=== PATIENT | female | born 1980 | race Caucasian/White ===

== ENCOUNTER 2024-02-24 03:48 | Observation (INO) | payer OTHER ==
[2024-02-24] VITALS (7 sets, daily range): BP systolic 129–164; BP diastolic 73–82; PULSE 60–68; TEMP 98.6–98.8
[~2024-02-24] VITALS: Ht 157.5 cm; Wt 75.0 kg
[~2024-02-24 03:48] MED LIST: LEVSIN0.125 M1 PO; NORCO 325 MG-51 TAB PO; ZOFRAN ODT4 MG PO
[2024-02-24] MEDS ORDERED: Pantoprazole 40 MG in NS 10 ML IV ONE (05:00)
[2024-02-24] MEDS ORDERED: NS 1,000 ML IV ONE (05:00)
[2024-02-24] MEDS ORDERED: LORazepam 2 MG/ML 1 ML VIAL IV ONE (05:00)
[2024-02-24] MEDS ORDERED: droPERidol 2.5 MG/ML 2 ML VIAL IV ONE (05:00)
[2024-02-24 05:05] LABS: BASO % 0.4 % (0.0-2.0); EOS % 0.1 % (0.0-4.0); GRAN # 6.2 K/mm3 (1.4-6.5); LYMPH # 0.9 K/mm3 (1.2-3.4); LYMPH % 12.3 % (20.0-51.0); MEAN CELL VOLUME 76 fl (80.0-100.0); MEAN CORPUSCULAR HGB CONC 28 g/dl (33.0-37.0); MEAN PLATELET VOLUME 10.3 fl (7.4-10.4); MONO # 0.5 K/mm3 (0.1-0.6); MONO % 5.9 % (1.7-9.3); PLATELET COUNT 236 K/mm3 (130-400); RED BLOOD COUNT 4.24 M/mm3 (4.10-5.30); REDCELL DISTRIBUTION WIDTH-CV 16.8 % (11.5-14.5)
[2024-02-24 05:06] LABS: MEAN CORPUSCULAR HEMOGLOBIN 21 pg (27-31)
[2024-02-24 05:19] LABS: ALBUMIN 4.3 g/dL (3.5-5.0); BILIRUBIN,TOTAL 0.3 mg/dL (0.2-1.2); CALCIUM 8.9 mg/dL (8.4-10.2); CREATININE, serum 0.8 mg/dL (0.57-1.11); POTASSIUM 3.3 mEq/L (3.5-4.5); TOTAL PROTEIN 7.2 g/dl (6.2-8.1)
--- NOTE | 2024-02-24 08:53 | NUR ---
PATIENT ARRIVED FROM ER AWAKE AND TIRED. PATINET SEEMS TO BE ANNOYED WITH RNS QUESTIONS. MD AWARE OF PATIENT COMPLAINTS OF 8/10 PAIN TO THE MID ABD, DESCRIBED CRAMPING. PATIENT RESTING IN BED. CALL LIGHT WITHIN REACH, HER IS AT BEDSIDE.
[2024-02-24] MEDS ORDERED: Dicyclomine 10 MG/ML 2 ML VIAL IM PRN (09:45)
[2024-02-24] MEDS ORDERED: Ondansetron 4 MG/2 ML VIAL IV PRN (10:00)
[2024-02-24] MEDS ORDERED: LR 1,000 ML IV SCH (10:00)
[2024-02-24] MEDS ORDERED: Acetaminophen 325 MG TAB PO PRN (10:00)
[2024-02-24] MEDS ORDERED: Dicyclomine 10 MG CAP PO PRN (10:00)
[2024-02-24 10:10] LABS: PH 8.5 (5.0-8.5); URINE APPEARANCE CLOUDY (CLEAR/HAZY); URINE BLOOD NEGATIVE (NEGATIVE); URINE COLOR YELLOW (YELLOW); URINE GLUCOSE NEGATIVE (NEGATIVE); URINE KETONE 1+ (NEGATIVE); URINE NITRATE NEGATIVE (NEGATIVE); URINE PROTEIN(semi-quant) TRACE (NEGATIVE); URINE UROBILINOGEN 0.2 E.U/dL (0.2-1.0)
[2024-02-24 10:13] LABS: COLLECTION METHOD CLEAN CATCH
[2024-02-24] MEDS ORDERED: Mag/Al Hydrox/Simeth Susp 30 ML CUP PO ONE (10:15)
--- NOTE | 2024-02-24 10:45 | NUR ---
PATIENT COMPLAINING OF 8/10 PAIN TO THE MID ABDOMEN AND EMESIS. PATIEN GIVEN IV COMPAZINE AND SHORTLY AFTER WAS RESTING COMFORTABLY IN BED. CALL ANTONIO OLIVER, HER AT BEDSIDE.
[2024-02-24 11:22] LABS: TRICYCLIC ANTIDEPRESS URINE NEGATIVE (NEGATIVE)
--- NOTE | 2024-02-24 14:00 | NUR ---
PATIENTS EXPRESSING CONCER WITH NO NEW TESTS BEING ORDERD AND THAT HIS IS "JUST SITTING HERE WITH NO PREGRESS." THIS RN UPDATED THE PATIENT AND HER REGARDING THE CURRENT PLAN OF CARE. CALL LIGHT WITHIN REACH.
--- NOTE | 2024-02-24 19:30 | NUR ---
Patient resting in bed with at bedside. Denies any pain or needs at this time. States she still feels nauseous and nothing seems to help. She said she was feeling good after her shower earlier today but after recieving the IV nausea med she felt bad again. Assessment complete. IV in left AC flushes easliy without complications. Call light and personal items in reach. Bed in low position.
[2024-02-25 00:39] VITALS: BP 168/81; PULSE 79; TEMP 99.2
[2024-02-25 00:46] VITALS: BP_SYST 168
[2024-02-25 04:55] VITALS: BP 162/66; PULSE 75; TEMP 98.9
--- NOTE | 2024-02-25 05:05 | NUR ---
Hospitalist Radha called and notified patient is very restless and was wondering if she could get something to help calm her down. Recieved orders for 0.5mg IV ativan one time.
[2024-02-25 05:13] VITALS: BP_SYST 162
[2024-02-25] MEDS ORDERED: LORazepam 2 MG/ML 1 ML VIAL IV ONE (05:18)
[2024-02-25 08:13] VITALS: BP 164/78; PULSE 75; TEMP 98.3
[2024-02-25 08:37] VITALS: BP_SYST 164
[2024-02-25] MEDS ORDERED: ZOFRAN ODT4 MG PO (09:09)
[2024-02-25] MEDS ORDERED: hydrOXYzine HCl 25 MG TAB PO ONE (09:15)
--- NOTE | 2024-02-25 10:47 | NUR ---
THIS RN PROVIDED PATIENT WITH DISCHARGE EDUCATION. ALL QUESTIONS ANSWERED. IV TO LFA DISCONTINUED. MINIMAL BLEEDING NOTED.
--- NOTE | 2024-02-25 11:03 | NUR ---
THIS RN ESCORTED PATIENT OFF UNIT AT APPROX 1100. ALL BELONGINGS WITH PATIENT.
--- NOTE | 2024-02-25 12:49 | NUR ---
plant production worker met with patient and her , Trip (P# [phone]) to discuss discharge planning. Patient's second contact is Tamiko, daughter, whom also lives with patient and her , P# [phone]. Patient lives in [place]. PCP is at [facility], Pharmacy is [facility]. No issues affording medications. Insurance is [employer]. No current DPOA-HC and not interested in completing one during the hospital stay. No DME, Patient reports to be independent with ADLS at home. Patient reports to have a form of transportation to get to and from appointments. Patient has no concerns about returning home at time of discharge. DIscharge plan: Home
== END 2024-02-25 11:00 | disposition home health service (06) ==
LOC: COL.ER 03:48 → MEDICAL 08:23
PROVIDERS: Emergency Medicine; ADMIT Internal Medicine
DX: R11.10 Vomiting, unspecified (principal); F12.988 Cannabis use, unspecified with other cannabis-induced disorder; E87.6 Hypokalemia
CPT/HCPCS: G0378; J0780; J1790; J2060; J2405; J2470; J7030; J7120